=== PATIENT | female | born 1990 | race Caucasian/White ===

== ENCOUNTER 2022-02-02 12:42 | Emergency (ER) | payer OTHER ==
[~2022-02-02] VITALS: Ht 172.7 cm; Wt 53.1 kg
[2022-02-02 13:09] VITALS: BP 104/62
--- NOTE | 2022-02-02 13:18 | NUR ---
CALLED TO ROOM IN,NO ANSWER
--- NOTE | 2022-02-02 14:11 | NUR ---
CALLED AGAIN TO ROOM IN BUT NO ANSWER.
== END 2022-02-02 14:15 | disposition left against medical advice (07) ==
LOC: ER 13:00
DX: Z53.21 Procedure and treatment not carried out due to patient leaving prior to being seen by health care provider (principal)